=== PATIENT | male | born 1995 | race Asian ===

== ENCOUNTER 2016-12-21 15:21 | Emergency (ER) | payer SELFPAY ==
[~2016-12-21] VITALS: Ht 170.2 cm; Wt 68.2 kg
[2016-12-21 15:23] VITALS: BP 123/80
[2016-12-21] MEDS ORDERED: BACITRACIN ZINC OINT 500U/GM, 0.9 GM ONE (15:33)
== END 2016-12-21 15:32 | disposition home or self-care (01) ==
LOC: ED 15:26
DX: S01.112D Laceration without foreign body of left eyelid and periocular area, subsequent encounter (principal); X58.XXXD Exposure to other specified factors, subsequent encounter
CPT/HCPCS: 99282